=== PATIENT | female | born 1955 | race Caucasian/White ===

== ENCOUNTER 2023-12-25 20:23 | Inpatient (IN) | payer MEDICARE, BC, SELFPAY ==
--- NOTE | ~2023-12-25 | XR_ITS ---
EXAMINATION: XR ABDOMEN KUB CLINICAL INDICATION: Assess stool burden COMPARISON: Abdominal x-ray 12/30/2023 TECHNIQUE: AP view of the abdomen. FINDINGS: Normal gas pattern. Decreased stool compared to prior. Spondylosis of the partially visualized thoracolumbar spine. Bilateral hip arthroplasties partially visualized intact. No abnormal calcifications. XR/XR KUB IMPRESSION: Decreased stool burden compared to prior.
--- NOTE | ~2023-12-25 | XR_ITS ---
EXAMINATION: XR ABDOMEN COMPLETE CLINICAL INDICATION: Reason for Exam assess stool burden COMPARISON: None TECHNIQUE: AP view of the abdomen. FINDINGS: Lines or devices: Bilateral partially imaged hip arthroplasties. Nonobstructive bowel gas pattern. Large colonic stool burden. Supine technique limits evaluation for extraluminal air although no secondary findings are appreciated. Calcified phleboliths in the pelvis. Multilevel degenerative disc disease visualized lumbosacral spine. XR/XR KUB IMPRESSION: * Large colonic stool burden.
[2023-12-25 20:45] VITALS: BP 139/64; PULSE 63; RESP 16; TEMP 36.6; O2SAT 99
[2023-12-25 23:17] VITALS: BP 142/84; PULSE 98; RESP 18; TEMP 36.6; O2SAT 97
[2023-12-25] MEDS: Ibuprofen 600 MG TABLET PO (23:23)
[2023-12-25] MEDS: traZODone HCL 100 MG TABLET 300 MG PO (23:23)
[2023-12-25] MEDS: oxyCODONE HCl Immed Release 5 MG TABLET 10 MG PO (23:24)
[2023-12-25] MEDS: LORazepam 1 MG TABLET PO (23:24)
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
--- NOTE | 2023-12-26 02:08 | PC.NURSE ---
Patient has documented allergy to oxycodone per noted reaction is GI upset. However, patient received oxycodone at outside hospital with no adverse reactions. She was able to tolerate dose given this shift with no reactions.
[2023-12-26 04:26] VITALS: BP 115/71; PULSE 89; RESP 18; TEMP 36.2; O2SAT 98
[2023-12-26] MEDS: Ibuprofen 600 MG TABLET PO ×2 (05:56→14:44)
[2023-12-26] MEDS: Nicotine Polacrilex 2 MG GUM 4 MG BUCCAL ×2 (06:34→12:06)
[2023-12-26 08:00] VITALS: BP 149/66; PULSE 80; RESP 14; TEMP 36.4; O2SAT 98
[2023-12-26] MEDS: Acetaminophen 325 MG TABLET 650 MG PO (08:41)
[2023-12-26] MEDS: LORazepam 1 MG TABLET PO ×3 (08:42→23:56)
[2023-12-26] MEDS: Thiamine HCL 100 MG TABLET 50 MG PO (08:42)
[2023-12-26] MEDS: DULoxetine HCl 30 MG CAPSULE.DR PO (08:42)
[2023-12-26] MEDS: Multivitamin TABLET 1 TAB PO (08:42)
[2023-12-26] MEDS: Folic Acid 1 MG TABLET PO (08:43)
[2023-12-26] MEDS: Nicotine 21 MG PATCH.TD24 TRANSDERMA (08:43)
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
[2023-12-26 11:15] LABS: Alanine Aminotransferase 11 U/L (0-31); Albumin Level 4.2 g/dL (3.5-5.0); Alkaline Phosphatase 75 U/L (39-117); Anion Gap 14 (12-20); Aspartate Amino Transferase 12 U/L (5-31); Bilirubin Total 0.5 mg/dL (0.0-1.0); Blood Urea Nitrogen 18 mg/dL (9-16); Calcium 9.8 mg/dL (8.4-10.2); Carbon Dioxide 24 mmol/L (22-29); Chloride 105 mmol/L (96-108); Cholesterol 241 mg/dL (<200); Estimated Glomerular Filt Rate > 60; Glucose Fasting 122 mg/dL (60-99); HDL Cholesterol 64 mg/dL (>40); LDL Cholesterol Calculated 154 mg/dL (<100); Potassium 3.8 mmol/L (3.3-5.1); Sodium 139 mmol/L (135-145); Triglycerides 119 mg/dL (<150)
--- NOTE | 2023-12-26 13:10 | MHC.RECOVRN ---
Received Addiction Medicine consult for alcohol use and chronic pain. Pt declines to meet with t/w regarding alcohol use. Chronic pain deferred to primary provider. T/w available if follow up is needed. RN and provider aware.
[2023-12-26] MEDS: Buprenorphine/Naloxone 4/1 mg FILM 1 FILM SUBLINGUAL ×2 (14:44→21:14)
[2023-12-26 19:26] VITALS: BP 135/69; PULSE 70; RESP 14; TEMP 36.4; O2SAT 95
[2023-12-26] MEDS: traZODone HCL 100 MG TABLET 300 MG PO (21:14)
[2023-12-27] MEDS: Ibuprofen 600 MG TABLET PO ×3 (00:01→22:40)
[2023-12-27 00:04] VITALS: BP 138/82; PULSE 72
[2023-12-27] MEDS: Acetaminophen 325 MG TABLET 650 MG PO (04:13)
[2023-12-27] MEDS: Buprenorphine/Naloxone 4/1 mg FILM 1 FILM SUBLINGUAL ×2 (04:13→13:39)
[2023-12-27 07:00] VITALS: BMI 30.7
[2023-12-27 07:35] VITALS: BP 111/59; PULSE 65; RESP 14; TEMP 36.9; O2SAT 96
[2023-12-27] MEDS: Nicotine 21 MG PATCH.TD24 TRANSDERMA (08:27)
[2023-12-27] MEDS: DULoxetine HCl 30 MG CAPSULE.DR PO (08:28)
[2023-12-27] MEDS: Thiamine HCL 100 MG TABLET 50 MG PO (08:28)
[2023-12-27] MEDS: Folic Acid 1 MG TABLET PO (08:28)
[2023-12-27] MEDS: Multivitamin TABLET 1 TAB PO (08:28)
[2023-12-27] MEDS: LORazepam 1 MG TABLET PO ×3 (08:33→20:51)
--- NOTE | 2023-12-27 10:08 | P.PNPSI_ITS ---
Subjective Subjective Date of Service: 12/27/23 Reason For Visit: Alcohol Use, Unspecified with intoxication, R45.85 Subjective Notes: Section 12B Interim History: pt talkative, effusive. pleasant. reports medication is helping. feels hopeful. feels pain is adequately managed; social with peers, attending groups. no SI or HI Medication Compliance: Yes Side effects from medications: No Attending Groups: Yes Review of Systems Review of Systems Yes all other systems are reviewed and are negative Mental Status Exam Mental Status Exam Narrative: blue hair. adequately dressed and groomed. cooperative. speech nml rate, amount, loudness, tone, latency. thoughts linear and logical. affect full range, normo-intense, non-labile. mood very good. denies SI/SIBI/HI/AVH. Diagnostics Vital Signs (24Hr): Vital Signs - 24 hr 12/26/23 19:26 12/27/23 00:04 12/27/23 07:35 Temperature 97.6 F 98.4 F Pulse Rate 70 72 65 Respiratory Rate 14 14 Blood Pressure 135/69 138/82 111/59 L Pulse Oximetry 95 96 Oxygen Delivery Method Room Air Room Air Labs 12/26/23 10:48 Labs: Laboratory Results - last 48 hr 12/26/23 10:48 Sodium 139 Potassium 3.8 Chloride 105 Carbon Dioxide 24 Anion Gap 14 BUN 18 H Creatinine 0.78 Estim Creat Clear Calc TNP Estimated GFR > 60 Fasting Glucose 122 H Calcium 9.8 Total Bilirubin 0.5 AST 12 ALT 11 Alkaline Phosphatase 75 Total Protein 7.0 Albumin 4.2 Triglycerides 119 Cholesterol 241 H LDL Cholesterol, Calc 154 H HDL Cholesterol 64 Medications Medications Current Medications Acetaminophen (Acetaminophen 325 Mg Tablet) 650 mg PO Q6H PRN PRN Reason: Headache/Pain Mild Scale (1-3) Last Admin: 12/27/23 04:13 Dose: 650 mg Al Hydroxide/Mg Hydroxide (Magnesium Hydrox/Alum Hydrox 30 Ml Oral.Susp) 30 ml PO Q6H PRN PRN Reason: Heartburn/Nausea Buprenorphine/Naloxone (Buprenorphine/Naloxone 4/1 Mg Film) 1 film SUBLINGUAL BID PRN PRN Reason: severe pain Last Admin: 12/27/23 04:13 Dose: 1 film Clonazepam (Clonazepam 1 Mg Tablet) 1 mg PO BID PRN PRN Reason: anxiety Duloxetine HCl (Duloxetine Hcl 30 Mg Capsule.Dr) 30 mg PO DAILY [facility] Last Admin: 12/27/23 08:28 Dose: 30 mg Folic Acid (Folic Acid 1 Mg Tablet) 1 mg PO DAILY [facility] Last Admin: 12/27/23 08:28 Dose: 1 mg Hydroxyzine HCl (Hydroxyzine Hcl 25 Mg Tablet) 25 mg PO Q6H PRN PRN Reason: Anxiety Ibuprofen (Ibuprofen 600 Mg Tablet) 600 mg PO Q8H PRN PRN Reason: Pain, Moderate(Pain Scale 4-6) Last Admin: 12/27/23 08:33 Dose: 600 mg Lorazepam (Lorazepam 1 Mg Tablet) 1 mg PO Q4H PRN PRN Reason: CIWA 8-12 Last Admin: 12/27/23 08:33 Dose: 1 mg Lorazepam (Lorazepam 1 Mg Tablet) 2 mg PO Q4H PRN PRN Reason: CIWA 13 and above Magnesium Hydroxide (Milk Of Magnesia 30 Ml Oral.Susp) 30 ml PO DAILY PRN PRN Reason: Constipation Multivitamins/Vitamin C (Multivitamin Tablet) 1 tab PO DAILY [facility] Last Admin: 12/27/23 08:28 Dose: 1 tab Nicotine (Nicotine 21 Mg Patch.Td24) 21 mg TRANSDERMA DAILY [facility] Last Admin: 12/27/23 08:27 Dose: 21 mg Nicotine Polacrilex (Nicotine Polacrilex 2 Mg Gum) 4 mg BUCCAL Q2H PRN PRN Reason: Nicotine Cravings Last Admin: 12/26/23 12:06 Dose: 4 mg Thiamine HCl (Thiamine Hcl 100 Mg Tablet) 50 mg PO DAILY [facility] Last Admin: 12/27/23 08:28 Dose: 50 mg Trazodone HCl (Trazodone Hcl 100 Mg Tablet) 300 mg PO BEDTIME [facility] Last Admin: 12/26/23 21:14 Dose: 300 mg Allergies Allergies Allergy/AdvReac Type Severity Reaction Status Date / Time KONSTANTIN Inhibitors Allergy Unknown Verified 12/25/23 21:48 pentazocine [From Talwin] Allergy Unknown Verified 12/25/23 21:48 Assessment & Plan Assessment & Plan (1) Alcohol use disorder: Status: Acute Code(s): F10.90 - Alcohol use, unspecified, uncomplicated (2) Nicotine use disorder: Status: Acute Code(s): F17.200 - Nicotine dependence, unspecified, uncomplicated (3) PTSD (post-traumatic stress disorder): Status: Acute Code(s): F43.10 - Post-traumatic stress disorder, unspecified (4) Chronic pain disorder: Status: Acute Code(s): G89.4 - Chronic pain syndrome Plan trial of suboxone 4 mg PRN pain. T/C increasing cymbalta. T/C campral or antabuse. obtain appointment with PCP for continuation of suboxone Rx. 12/26 continue tx plan added senna daily and colace daily for constipation Reason for continued inpatient stay Substantial Risk for: harm to self and inability to function Time Spent With Patient Time: Total time managing care of this patient today ____ minutes.
[2023-12-27] MEDS: Sennosides 8.6 MG TABLET PO (15:02)
[2023-12-27] MEDS: Docusate Sodium 100 MG CAPSULE PO (15:02)
[2023-12-27 18:00] VITALS: BP 108/59; PULSE 66; TEMP 36.3; O2SAT 96
[2023-12-27] MEDS: Magnesium Hydrox/Alum Hydrox 30 ML ORAL.SUSP PO (20:51)
[2023-12-27] MEDS: traZODone HCL 100 MG TABLET 300 MG PO (22:40)
[2023-12-28 08:00] VITALS: BP 104/56; PULSE 61; RESP 18; TEMP 36.1; O2SAT 94
[2023-12-28] MEDS: Nicotine 21 MG PATCH.TD24 TRANSDERMA (08:05)
[2023-12-28] MEDS: Acetaminophen 325 MG TABLET 650 MG PO (08:05)
[2023-12-28] MEDS: Folic Acid 1 MG TABLET PO (08:06)
[2023-12-28] MEDS: Multivitamin TABLET 1 TAB PO (08:06)
[2023-12-28] MEDS: DULoxetine HCl 30 MG CAPSULE.DR PO (08:06)
[2023-12-28] MEDS: Buprenorphine/Naloxone 4/1 mg FILM 1 FILM SUBLINGUAL ×4 (08:07→21:22)
[2023-12-28] MEDS: Thiamine HCL 100 MG TABLET 50 MG PO (08:07)
[2023-12-28] MEDS: Ibuprofen 600 MG TABLET PO ×2 (08:55→23:22)
[2023-12-28] MEDS: Sennosides 8.6 MG TABLET PO (08:59)
[2023-12-28] MEDS: LORazepam 1 MG TABLET PO ×2 (08:59→21:21)
--- NOTE | 2023-12-28 15:30 | HO.PSYCHPN ---
Subjective Subjective Date of Service: 12/28/23 Reason For Visit: Alcohol Use, Unspecified with intoxication, R45.85 Interim History: calm, cooperative, pleasant. would like to DC cymbalta and hold on starting campral or antabuse. feels since starting suboxone she is not thinking about drinking. believes her anxiety issues and alcohol use are driven by pain. agreeable to meghan [facility]. per staff, 12b up sunday. scored x2 on CIWA yesterday. using ibuprofen and suboxone, feeling better. + anx/dep. Mental Status Exam Mental Status Exam Narrative: blue hair. adequately dressed and groomed. cooperative. speech nml rate, amount, loudness, tone, latency. thoughts linear and logical. affect full range, normo-intense, non-labile. mood very good. denies SI/SIBI/HI/AVH. Diagnostics Vital Signs (24Hr): Vital Signs - 24 hr 12/27/23 18:00 12/28/23 08:00 Temperature 97.4 F 96.9 F Pulse Rate 66 61 Respiratory Rate 18 Blood Pressure 108/59 L 104/56 L Pulse Oximetry 96 94 Oxygen Delivery Method Room Air Room Air BMI result Body Mass Index 30.7 Labs 12/26/23 10:48 Medications Medications Current Medications Acetaminophen (Acetaminophen 325 Mg Tablet) 650 mg PO Q6H PRN PRN Reason: Headache/Pain Mild Scale (1-3) Last Admin: 12/28/23 08:05 Dose: 650 mg Al Hydroxide/Mg Hydroxide (Magnesium Hydrox/Alum Hydrox 30 Ml Oral.Susp) 30 ml PO Q6H PRN PRN Reason: Heartburn/Nausea Last Admin: 12/27/23 20:51 Dose: 30 ml Buprenorphine/Naloxone (Buprenorphine/Naloxone 4/1 Mg Film) 1 film SUBLINGUAL Q4H PRN PRN Reason: severe pain Last Admin: 12/28/23 11:57 Dose: 1 film Docusate Sodium (Docusate Sodium 100 Mg Capsule) 100 mg PO DAILY PRN PRN Reason: Constipation Last Admin: 12/27/23 15:02 Dose: 100 mg Folic Acid (Folic Acid 1 Mg Tablet) 1 mg PO DAILY [facility] Last Admin: 12/28/23 08:06 Dose: 1 mg Hydroxyzine HCl (Hydroxyzine Hcl 25 Mg Tablet) 25 mg PO Q6H PRN PRN Reason: Anxiety Ibuprofen (Ibuprofen 600 Mg Tablet) 600 mg PO Q8H PRN PRN Reason: Pain, Moderate(Pain Scale 4-6) Last Admin: 12/28/23 08:55 Dose: 600 mg Lorazepam (Lorazepam 1 Mg Tablet) 1 mg PO BID [facility] Stop: 12/29/23 09:01 Magnesium Hydroxide (Milk Of Magnesia 30 Ml Oral.Susp) 30 ml PO DAILY PRN PRN Reason: Constipation Multivitamins/Vitamin C (Multivitamin Tablet) 1 tab PO DAILY [facility] Last Admin: 12/28/23 08:06 Dose: 1 tab Nicotine (Nicotine 21 Mg Patch.Td24) 21 mg TRANSDERMA DAILY [facility] Last Admin: 12/28/23 08:05 Dose: 21 mg Nicotine Polacrilex (Nicotine Polacrilex 2 Mg Gum) 4 mg BUCCAL Q2H PRN PRN Reason: Nicotine Cravings Last Admin: 12/26/23 12:06 Dose: 4 mg Senna (Sennosides 8.6 Mg Tablet) 8.6 mg PO DAILY PRN PRN Reason: constipation Last Admin: 12/28/23 08:59 Dose: 8.6 mg Thiamine HCl (Thiamine Hcl 100 Mg Tablet) 50 mg PO DAILY [facility] Last Admin: 12/28/23 08:07 Dose: 50 mg Trazodone HCl (Trazodone Hcl 100 Mg Tablet) 300 mg PO BEDTIME [facility] Last Admin: 12/27/23 22:40 Dose: 300 mg Allergies Allergies Allergy/AdvReac Type Severity Reaction Status Date / Time KONSTANTIN Inhibitors Allergy Unknown Verified 12/25/23 21:48 pentazocine [From Talwin] Allergy Unknown Verified 12/25/23 21:48 Assessment & Plan Assessment & Plan (1) Alcohol use disorder: Status: Acute Code(s): F10.90 - Alcohol use, unspecified, uncomplicated (2) Nicotine use disorder: Status: Acute Code(s): F17.200 - Nicotine dependence, unspecified, uncomplicated (3) PTSD (post-traumatic stress disorder): Status: Acute Code(s): F43.10 - Post-traumatic stress disorder, unspecified (4) Chronic pain disorder: Status: Acute Code(s): G89.4 - Chronic pain syndrome Plan trial of suboxone 4 mg PRN pain. T/C increasing cymbalta. T/C campral or antabuse. obtain appointment with PCP for continuation of suboxone Rx. 12/26 continue tx plan added senna daily and colace daily for constipation 12/27: brief ativan taper. DC cymbalta and hold on meds for AUD per pt preference. increase suboxone to 4 mg Q4H PRN. DC klonopin. planning for sunday discharge, as pt is on 12b that expires sunday. Reason for continued inpatient stay Substantial Risk for: inability to function and med/psych decompensation Time Spent With Patient Time: Total time managing care of this patient today ___35_ minutes.
[2023-12-28] MEDS: hydrOXYzine HCL 25 MG TABLET PO ×2 (17:15→23:22)
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
[2023-12-28 19:10] VITALS: BP 144/78; PULSE 70; RESP 16; TEMP 36.3; O2SAT 97
[2023-12-28] MEDS: traZODone HCL 100 MG TABLET 300 MG PO (21:21)
[2023-12-28] MEDS: Milk of Magnesia 30 ML ORAL.SUSP PO (21:22)
[2023-12-28] MEDS: Nicotine Polacrilex 2 MG GUM 4 MG BUCCAL (21:36)
[2023-12-29] MEDS: Buprenorphine/Naloxone 4/1 mg FILM 1 FILM SUBLINGUAL ×3 (01:08→09:51)
[2023-12-29] MEDS: Acetaminophen 325 MG TABLET 650 MG PO (05:00)
[2023-12-29] MEDS: hydrOXYzine HCL 25 MG TABLET PO ×2 (05:00→18:29)
[2023-12-29 08:00] VITALS: BP 104/63; PULSE 66; RESP 18; TEMP 36.6; O2SAT 94
[2023-12-29] MEDS: Nicotine 21 MG PATCH.TD24 TRANSDERMA (09:48)
[2023-12-29] MEDS: Docusate Sodium 100 MG CAPSULE PO (09:49)
[2023-12-29] MEDS: Sennosides 8.6 MG TABLET PO (09:49)
[2023-12-29] MEDS: Folic Acid 1 MG TABLET PO (09:50)
[2023-12-29] MEDS: LORazepam 1 MG TABLET PO (09:50)
[2023-12-29] MEDS: Multivitamin TABLET 1 TAB PO (09:50)
[2023-12-29] MEDS: Thiamine HCL 100 MG TABLET 50 MG PO (09:51)
[2023-12-29] MEDS: Buprenorphine/Naloxone 2/0.5mg FILM 3 FILM SUBLINGUAL ×3 (13:55→22:16)
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
[2023-12-29] MEDS: Nicotine Polacrilex 2 MG GUM 4 MG BUCCAL (16:31)
[2023-12-29 20:03] VITALS: BP 141/70; PULSE 75; RESP 18; TEMP 36.8; O2SAT 95
[2023-12-29] MEDS: Milk of Magnesia 30 ML ORAL.SUSP PO (22:20)
[2023-12-29] MEDS: Melatonin 3 MG TABLET 9 MG PO (23:22)
[2023-12-29] MEDS: traZODone HCL 100 MG TABLET 300 MG PO (23:22)
[2023-12-30] MEDS: Buprenorphine/Naloxone 2/0.5mg FILM 3 FILM SUBLINGUAL ×3 (02:56→13:10)
[2023-12-30] MEDS: hydrOXYzine HCL 25 MG TABLET PO ×2 (02:56→09:24)
[2023-12-30 07:31] VITALS: BP 109/71; PULSE 67; RESP 16; TEMP 36.8; O2SAT 96
[2023-12-30] MEDS: Sennosides 8.6 MG TABLET PO (08:43)
[2023-12-30] MEDS: Multivitamin TABLET 1 TAB PO (08:43)
[2023-12-30] MEDS: Folic Acid 1 MG TABLET PO (08:43)
[2023-12-30] MEDS: Docusate Sodium 100 MG CAPSULE PO (08:43)
[2023-12-30] MEDS: Thiamine HCL 100 MG TABLET 50 MG PO (08:44)
[2023-12-30] MEDS: Nicotine 21 MG PATCH.TD24 TRANSDERMA (08:45)
[2023-12-30] MEDS: bisacodyL 10 MG SUPP.RECT PR (11:37)
[2023-12-30] MEDS: Sodium Phosphate,Mono-Dibasic 133 ML ENEMA PR (13:34)
--- NOTE | 2023-12-30 14:46 | PC.NURSE ---
Gema reports having no bowel movement or urge since Sunday12/23/23 despite multiple efforts including MOM, Docusate, Senokot and prune juice. She was given a dulcolax suppository and reported no effect. She was also given a fleets enema and reported no effect. Km Byrd MD made aware and KURachel ordered.
--- NOTE | 2023-12-30 16:35 | P.PNPSI_ITS ---
Subjective Subjective Date of Service: 12/30/23 Reason For Visit: Alcohol Use, Unspecified with intoxication, R45.85 Interim History: calm, cooperative. continues to feel helped by suboxone. having some difficulties with the 2 mg films, agrees to change dosing to 8 mg QID PRN pain. also interested in increase in hydroxyzine for anxiety. constipated, getting various laxatives and enema. per staff, passive SI. increased anxiety. sept 6-7 hours. c/o nightmares. no BM since sunday. Mental Status Exam Mental Status Exam Narrative: blue hair. adequately dressed and groomed. cooperative. speech nml rate, amount, loudness, tone, latency. thoughts linear and logical. affect full range, normo-intense, non-labile. mood not assessed. no SI/SIBI/HI/AVH expressed. Diagnostics Vital Signs (24Hr): Vital Signs - 24 hr 12/29/23 20:03 12/30/23 07:31 Temperature 98.3 F 98.2 F Pulse Rate 75 67 Respiratory Rate 18 16 Blood Pressure 141/70 H 109/71 Pulse Oximetry 95 96 Oxygen Delivery Method Room Air Room Air BMI result Body Mass Index 30.7 Labs 12/26/23 10:48 Imaging Radiology Impressions: ITS Impressions KUB X-Ray 12/30/23 15:19 IMPRESSION: * Large colonic stool burden. Medications Medications Current Medications Acetaminophen (Acetaminophen 325 Mg Tablet) 650 mg PO Q6H PRN PRN Reason: Headache/Pain Mild Scale (1-3) Last Admin: 12/29/23 05:00 Dose: 650 mg Al Hydroxide/Mg Hydroxide (Magnesium Hydrox/Alum Hydrox 30 Ml Oral.Susp) 30 ml PO Q6H PRN PRN Reason: Heartburn/Nausea Last Admin: 12/27/23 20:51 Dose: 30 ml Bisacodyl (Bisacodyl 10 Mg Supp.Rect) 10 mg ID DAILY PRN PRN Reason: Constipation Last Admin: 12/30/23 11:37 Dose: 10 mg Buprenorphine/Naloxone (Buprenorphine/Naloxone 8/2 Mg Film) 1 film SUBLINGUAL QID PRN PRN Reason: Pain, Severe (Pain Scale 7-10) Docusate Sodium (Docusate Sodium 100 Mg Capsule) 100 mg PO DAILY PRN PRN Reason: Constipation Last Admin: 12/30/23 08:43 Dose: 100 mg Folic Acid (Folic Acid 1 Mg Tablet) 1 mg PO DAILY [facility] Last Admin: 12/30/23 08:43 Dose: 1 mg Hydrocortisone (Hydrocortisone 1 % Ointment 28.35 Gm Tube) 1 appl TOPICAL DAILY [facility]; Protocol Hydroxyzine HCl (Hydroxyzine Hcl 50 Mg Tablet) 50 mg PO Q6H PRN PRN Reason: Anxiety Ibuprofen (Ibuprofen 600 Mg Tablet) 600 mg PO Q8H PRN PRN Reason: Pain, Moderate(Pain Scale 4-6) Last Admin: 12/28/23 23:22 Dose: 600 mg Magnesium Hydroxide (Milk Of Magnesia 30 Ml Oral.Susp) 30 ml PO DAILY PRN PRN Reason: Constipation Last Admin: 12/29/23 22:20 Dose: 30 ml Melatonin (Melatonin 3 Mg Tablet) 9 mg PO BEDTIME PRN PRN Reason: insomnia Last Admin: 12/29/23 23:22 Dose: 9 mg Multivitamins/Vitamin C (Multivitamin Tablet) 1 tab PO DAILY [facility] Last Admin: 12/30/23 08:43 Dose: 1 tab Nicotine (Nicotine 21 Mg Patch.Td24) 21 mg TRANSDERMA DAILY [facility] Last Admin: 12/30/23 08:45 Dose: 21 mg Nicotine Polacrilex (Nicotine Polacrilex 2 Mg Gum) 4 mg BUCCAL Q2H PRN PRN Reason: Nicotine Cravings Last Admin: 12/29/23 16:31 Dose: 4 mg Senna (Sennosides 8.6 Mg Tablet) 8.6 mg PO DAILY PRN PRN Reason: constipation Last Admin: 12/30/23 08:43 Dose: 8.6 mg Sodium Biphosphate/Sodium Phosphate (Sodium Phosphate,[place]-Dibasic 133 Ml Enema) 133 ml ID ONCE PRN PRN Reason: Constipation Last Admin: 12/30/23 13:34 Dose: 133 ml Thiamine HCl (Thiamine Hcl 100 Mg Tablet) 50 mg PO DAILY [facility] Last Admin: 12/30/23 08:44 Dose: 50 mg Trazodone HCl (Trazodone Hcl 100 Mg Tablet) 300 mg PO BEDTIME [facility] Last Admin: 12/29/23 23:22 Dose: 300 mg Allergies Allergies Allergy/AdvReac Type Severity Reaction Status Date / Time KONSTANTIN Inhibitors Allergy Unknown Verified 12/25/23 21:48 pentazocine [From Temitope] Allergy Unknown Verified 12/25/23 21:48 Assessment & Plan Assessment & Plan (1) Alcohol use disorder: Status: Acute Code(s): F10.90 - Alcohol use, unspecified, uncomplicated (2) Chronic pain disorder: Status: Acute Code(s): G89.4 - Chronic pain syndrome Assessment and Plan: Suboxone seem to alleviate the pain of this patient significantly.. She is very pleasant and not at all in acute distress. She stated that she had multiple images of the lumbar spine with her pain management physician. If interventional pain procedures are desired please obtain her images from the outside pain management office. Although currently the patient is satisfied with her suboxone medical pain therapy, so unlikely interventions at the moment. If she desires any procedure as an outpatient with Pain Management Center at [facility] [place], she needs a referral from the psychiatry team for the outpatient consult after her discharge from the [facility]. (3) PTSD (post-traumatic stress disorder): Status: Acute Code(s): F43.10 - Post-traumatic stress disorder, unspecified (4) Spondylosis of lumbar region without myelopathy or radiculopathy: Status: Acute Code(s): M47.816 - Spondylosis without myelopathy or radiculopathy, lumbar region (5) Sacroiliac joint pain: Status: Acute Code(s): M53.3 - Sacrococcygeal disorders, not elsewhere classified Plan trial of suboxone 4 mg PRN pain. T/C increasing cymbalta. T/C campral or antabuse. obtain appointment with PCP for continuation of suboxone Rx. 12/26 continue tx plan added senna daily and colace daily for constipation 12/27: brief ativan taper. DC cymbalta and hold on meds for AUD per pt preference. increase suboxone to 4 mg Q4H PRN. DC klonopin. planning for sunday discharge, as pt is on 12b that expires sunday. 12/28: increase suboxone dosing to 6 mg per dose, limited to 30 mg daily, as previous regimen reported to be inadequate. 12/29: increase suboxone to 8 mg per dose, QID PRN. constipation. pursue more aggressive bowel regimen. signed CV. Reason for continued inpatient stay Substantial Risk for: inability to function and rapid decompensation Time Spent With Patient Time: Total time managing care of this patient today ____ minutes.
[2023-12-30] MEDS: Acetaminophen 325 MG TABLET 650 MG PO (16:37)
[2023-12-30] MEDS: Hydrocortisone 1 % Ointment 28.35 GM TUBE 1 APPL TOPICAL (16:38)
[2023-12-30] MEDS: hydrOXYzine HCL 50 MG TABLET PO ×2 (16:40→22:30)
[2023-12-30] MEDS: Lactulose 20 GM/30 ML SOLUTION 30 GM PO ×2 (17:04→22:28)
[2023-12-30] MEDS: Buprenorphine/Naloxone 8/2 mg FILM 1 FILM SUBLINGUAL ×2 (18:55→23:04)
[2023-12-30 21:50] VITALS: BP 116/61; PULSE 67; RESP 18; TEMP 36.4; O2SAT 95
[2023-12-30] MEDS: traZODone HCL 100 MG TABLET 300 MG PO (22:29)
[2023-12-30] MEDS: Ibuprofen 600 MG TABLET PO (22:30)
[2023-12-31] MEDS: Melatonin 3 MG TABLET 9 MG PO ×2 (01:52→23:07)
[2023-12-31] MEDS: Acetaminophen 325 MG TABLET 650 MG PO ×2 (03:44→15:21)
[2023-12-31] MEDS: Nicotine Polacrilex 2 MG GUM 4 MG BUCCAL ×2 (03:44→21:37)
[2023-12-31] MEDS: Buprenorphine/Naloxone 8/2 mg FILM 1 FILM SUBLINGUAL ×3 (06:10→18:30)
[2023-12-31] MEDS: hydrOXYzine HCL 50 MG TABLET PO ×4 (06:10→21:36)
[2023-12-31 07:30] VITALS: BP 90/49; PULSE 59; RESP 14; TEMP 36.3; O2SAT 96
[2023-12-31 08:21] VITALS: BP 90/49; PULSE 59; RESP 14; TEMP 36.3; O2SAT 96
[2023-12-31] MEDS: Nicotine 21 MG PATCH.TD24 TRANSDERMA (08:31)
[2023-12-31] MEDS: Folic Acid 1 MG TABLET PO (08:32)
[2023-12-31] MEDS: Multivitamin TABLET 1 TAB PO (08:32)
[2023-12-31] MEDS: Lactulose 20 GM/30 ML SOLUTION 30 GM PO ×3 (08:32→21:37)
[2023-12-31] MEDS: Thiamine HCL 100 MG TABLET 50 MG PO (08:32)
[2023-12-31] MEDS: Hydrocortisone 1 % Ointment 28.35 GM TUBE 1 APPL TOPICAL (10:57)
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
[2023-12-31 21:00] VITALS: BP 133/73; PULSE 68; RESP 18; TEMP 36.5; O2SAT 95
[2023-12-31] MEDS: traZODone HCL 100 MG TABLET 300 MG PO (21:37)
[2024-01-01] MEDS: Hydrocortisone 2.5 % Rectal Cr 30 GM TUBE 1 APPL PR ×2 (00:12→21:26)
[2024-01-01] MEDS: Buprenorphine/Naloxone 8/2 mg FILM 1 FILM SUBLINGUAL ×4 (00:26→21:19)
[2024-01-01] MEDS: hydrOXYzine HCL 50 MG TABLET PO (03:40)
[2024-01-01] MEDS: Acetaminophen 325 MG TABLET 650 MG PO (03:40)
[2024-01-01 07:30] VITALS: BP 102/58; PULSE 67; RESP 14; TEMP 36.4; O2SAT 93
[2024-01-01] MEDS: Ibuprofen 600 MG TABLET PO (07:52)
[2024-01-01] MEDS: Nicotine 21 MG PATCH.TD24 TRANSDERMA (08:30)
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
[2024-01-01] MEDS: Sennosides 8.6 MG TABLET PO ×2 (12:04→21:17)
[2024-01-01] MEDS: bisacodyL 5 MG TABLET.DR 10 MG PO (12:04)
[2024-01-01] MEDS: Docusate Sodium 100 MG CAPSULE PO ×2 (12:04→21:18)
[2024-01-01] MEDS: hydrOXYzine HCL 25 MG TABLET 75 MG PO ×2 (12:07→18:41)
[2024-01-01] MEDS: Sodium Phosphate,Mono-Dibasic 133 ML ENEMA PR (12:55)
[2024-01-01] MEDS: Mineral OiL enema 133 ML ENEMA PR (14:14)
--- NOTE | 2024-01-01 18:45 | PC.NURSE ---
1840 pt reported having a bowel movement, pt reports decreased abdominal discomfort and distention.
[2024-01-01 20:00] VITALS: BP 131/66; PULSE 70; RESP 16; TEMP 36.5; O2SAT 97
[2024-01-01] MEDS: traZODone HCL 100 MG TABLET 300 MG PO (21:18)
[2024-01-01] MEDS: Melatonin 3 MG TABLET 9 MG PO (21:18)
[2024-01-02] MEDS: Ibuprofen 600 MG TABLET PO (02:18)
[2024-01-02] MEDS: hydrOXYzine HCL 25 MG TABLET 75 MG PO (02:19)
[2024-01-02] MEDS: Nicotine Polacrilex 2 MG GUM 4 MG BUCCAL (02:19)
[2024-01-02] MEDS: Acetaminophen 325 MG TABLET 650 MG PO (04:05)
[2024-01-02] MEDS: Buprenorphine/Naloxone 8/2 mg FILM 1 FILM SUBLINGUAL (06:09)
[2024-01-02 07:41] VITALS: BP 105/57; PULSE 71; RESP 16; TEMP 36.3; O2SAT 95
== END 2024-01-02 10:17 | disposition home or self-care (01) | DRG 882 ==
PROVIDERS: Registered Nurse; Admitting Provider Psychiatry & Neurology Psychiatry; Visit Provider Psychiatry & Neurology Psychiatry
DX: F43.10 Post-traumatic stress disorder, unspecified (principal); R45.851 Suicidal ideations; F11.20 Opioid dependence, uncomplicated; F17.210 Nicotine dependence, cigarettes, uncomplicated; F41.9 Anxiety disorder, unspecified; F10.90 Alcohol use, unspecified, uncomplicated; G89.4 Chronic pain syndrome; M47.816 Spondylosis without myelopathy or radiculopathy, lumbar region; M53.3 Sacrococcygeal disorders, not elsewhere classified; Z91.51 Personal history of suicidal behavior; Z71.6 Tobacco abuse counseling; Z79.899 Other long term (current) drug therapy
CPT/HCPCS: 36415; 74018; 80053; 80061

== ENCOUNTER → 2023-12-25 20:23 | Outpatient (BNV) | payer MEDICARE, BC, SELFPAY | PROVIDERS: Admitting Provider Psychiatry & Neurology Psychiatry; Visit Provider Psychiatry & Neurology Psychiatry | DX: F10.90 Alcohol use, unspecified, uncomplicated (principal); F43.11 Post-traumatic stress disorder, acute; G89.4 Chronic pain syndrome; M47.816 Spondylosis without myelopathy or radiculopathy, lumbar region; M53.3 Sacrococcygeal disorders, not elsewhere classified | CPT/HCPCS: 90792; 99231; 99232; 99239 ==

== ENCOUNTER → 2023-12-25 20:23 | Outpatient (BNV) | payer MEDICARE, BC, SELFPAY | PROVIDERS: Admitting Provider Psychiatry & Neurology Psychiatry; Visit Provider Anesthesiology | DX: G89.4 Chronic pain syndrome (principal); F10.90 Alcohol use, unspecified, uncomplicated; F43.10 Post-traumatic stress disorder, unspecified; M47.816 Spondylosis without myelopathy or radiculopathy, lumbar region; M53.3 Sacrococcygeal disorders, not elsewhere classified | CPT/HCPCS: 99221 ==

== ENCOUNTER → 2023-12-25 20:23 | Outpatient (BNV) | payer MEDICARE, BC, SELFPAY | PROVIDERS: Admitting Provider Psychiatry & Neurology Psychiatry; Visit Provider Physician Assistant | DX: Z02.2 Encounter for examination for admission to residential institution (principal) | CPT/HCPCS: 99429 ==